=== PATIENT | male | born 1965 | race Caucasian/White ===

== ENCOUNTER 2017-07-07 09:58 | Outpatient (CLI) | payer OTHER | END 2017-07-07 23:59 | disposition home or self-care (01) | LOC: 64 CT 09:58 | PROVIDERS: ATTEND Internal Medicine | DX: N20.0 Calculus of kidney (principal); N28.1 Cyst of kidney, acquired; M47.816 Spondylosis without myelopathy or radiculopathy, lumbar region; M85.88 Other specified disorders of bone density and structure, other site; J98.11 Atelectasis | CPT/HCPCS: 74176 ==

== ENCOUNTER 2020-04-26 12:27 | Emergency (ER) | payer MEDICAID ==
[~2020-04-26] VITALS: Ht 167.6 cm; Wt 63.4 kg
[2020-04-26] MEDS ORDERED: normal saline 1000ML IV soln IVB ONE (12:55)
[2020-04-26 13:29] LABS: BASOPHILS # (AUTO) 0.1 X10'3 (0-0.2); BASOPHILS % (AUTO) 0.8 % (0-1); EOSINOPHILS # (AUTO) 0.5 X10'3 (0-0.9); EOSINOPHILS % (AUTO) 3.8 % (0-6); HEMATOCRIT 28.8 % (42.0-52.0); HEMOGLOBIN 9.1 g/dl (14.0-17.9); LYMPHOCYTES % (AUTO) 8.6 % (21-51); MEAN CORPUSCULAR HGB CONC 31.6 g/dL (33.0-36.5); MEAN CORPUSCULAR VOLUME 79.1 FL (78-98); MEAN PLATELET VOLUME 7.2 FL (7.4-10.4); MONOCYTES % (AUTO) 8.8 % (2-12); NEUTROPHILS # (AUTO) 9.2 X10'3 (1.8-7.7); PLATELET COUNT 430 X10'3 (140-440); RED BLOOD COUNT 3.64 X10'6 (4.70-6.10); RED CELL DISTRIBUTION WIDTH 18.8 % (11.5-14.5); WHITE BLOOD COUNT 11.8 X10'3 (4.5-11.0)
[2020-04-26 13:49] LABS: ANISOCYTOSIS 2+; MICROCYTOSIS 1+; PLATELET ESTIMATE NORMAL
[2020-04-26 13:52] LABS: ALBUMIN 2.5 G/DL (3.4-5.0); ANION GAP 8 (8-16); BLOOD UREA NITROGEN 24 MG/DL (7-18); BUN/CREATININE RATIO 35.3 (5.4-32.0); CALCIUM 8.5 MG/DL (8.5-10.1); CHLORIDE 100 MMOL/L (99-107); CREATININE 0.68 MG/DL (0.60-1.10); GLUCOSE 110 MG/DL (70-104); LIPASE 55 U/L (73-393); POTASSIUM 4.5 MMOL/L (3.5-5.1); SODIUM 134 MMOL/L (135-145); TOTAL CARBON DIOXIDE 25.6 MMOL/L (24-32); eGFR > 90 ML/MIN
--- NOTE | 2020-04-26 15:44 | NUR ---
Phoned report to [facility] and gave SBAR report to JANE Leslie. [facility] will be here soon to transport the patient back to [facility] via gurney. Pt's PICC line remains intact as previous. Pt has stable vitals, is afebrile and accepts pain level.
[2020-04-26 18:32] VITALS: BP 97/56
== END 2020-04-26 16:03 | disposition home or self-care (01) ==
LOC: ER 12:27
DX: S72.002A Fracture of unspecified part of neck of left femur, initial encounter for closed fracture (principal); K59.00 Constipation, unspecified; G89.29 Other chronic pain; M54.9 Dorsalgia, unspecified; V49.9XXA Car occupant (driver) (passenger) injured in unspecified traffic accident, initial encounter; Y93.89 Activity, other specified; Y92.89 Other specified places as the place of occurrence of the external cause; Y99.8 Other external cause status
CPT/HCPCS: 74176; 80048; 83690; 85025; 96360; 99284; J7030; 85008